=== PATIENT | female | born 1965 | race African-American/Black ===

== ENCOUNTER 2017-06-01 15:16 | Emergency (ER) | payer OTHER ==
[~2017-06-01] VITALS: Ht 149.9 cm; Wt 57.2 kg
[2017-06-01] MEDS ORDERED: NORVASC5 MG PO (15:44)
== END 2017-06-01 18:30 | disposition home or self-care (01) ==
LOC: ER 15:16
DX: B34.9 Viral infection, unspecified (principal)

== ENCOUNTER 2018-12-16 07:24 | Outpatient (CLI) | payer OTHER ==
[~2018-12-16 07:24] MED LIST: NORVASC5 MG PO
== END 2018-12-16 07:25 | disposition home or self-care (01) ==
LOC: TOM 07:24 → MAMO-SONO 08:15
DX: R31.29 Other microscopic hematuria (principal)

== ENCOUNTER 2018-12-16 08:05 | Outpatient (CLI) | payer OTHER | END 2018-12-16 10:23 | disposition home or self-care (01) | LOC: LAB 08:05 | DX: R31.29 Other microscopic hematuria (principal) ==

== ENCOUNTER 2019-04-17 10:52 | Emergency (ER) | payer OTHER ==
[~2019-04-17] VITALS: Ht 149.9 cm; Wt 58.1 kg
[2019-04-17] MEDS ORDERED: LOSARTAN POTASS50 MG PO (11:03)
[2019-04-17] MEDS ORDERED: ZITHROMAX500 MG PO (13:54)
[2019-04-17] MEDS ORDERED: MUCINEX D ER 11 EACH PO (13:54)
== END 2019-04-17 14:00 | disposition home or self-care (01) ==
LOC: ER 10:52
DX: J32.8 Other chronic sinusitis (principal)

== ENCOUNTER → 2019-12-04 | Emergency (ER) | payer OTHER ==
[~2019-12-04] VITALS: Ht 149.9 cm; Wt 52.2 kg
[~2019-12-04] MED LIST changes: +LOSARTAN POTASS50 MG PO; +MUCINEX D ER 11 EACH PO; +ZITHROMAX500 MG PO
== END | disposition home or self-care (01) ==
LOC: ER 07:16
DX: R53.81 Other malaise (principal); Z03.818 Encounter for observation for suspected exposure to other biological agents ruled out

== ENCOUNTER 2020-09-17 09:06 | Outpatient (CLI) | payer OTHER | END 2020-09-17 09:20 | disposition home or self-care (01) | LOC: SONOGRAMA 09:06 → MAMO-SONO 09:15 → SONOGRAMA 09:20 | PROVIDERS: ATTEND Obstetrics & Gynecology | DX: R10.2 Pelvic and perineal pain (principal); N91.4 Secondary oligomenorrhea ==

== ENCOUNTER 2020-09-24 13:17 | Outpatient (CLI) | payer OTHER | END 2020-09-24 13:21 | disposition home or self-care (01) | LOC: NUCLEAR 13:17 | DX: M81.0 Age-related osteoporosis without current pathological fracture (principal); Z13.820 Encounter for screening for osteoporosis ==

== ENCOUNTER → 2020-11-08 13:04 | Outpatient (CLI) | payer OTHER | END | disposition home or self-care (01) | LOC: LAB 13:04 | PROVIDERS: ATTEND Radiology Diagnostic Radiology | DX: E22.1 Hyperprolactinemia (principal) ==

== ENCOUNTER 2020-11-11 10:26 | Outpatient (CLI) | payer OTHER | END 2020-11-11 10:42 | disposition home or self-care (01) | LOC: MRI 10:26 | PROVIDERS: ATTEND Obstetrics & Gynecology | DX: E23.6 Other disorders of pituitary gland (principal); E22.1 Hyperprolactinemia | CPT/HCPCS: 70553 ==

== ENCOUNTER 2022-05-27 19:18 | Emergency (ER) | payer OTHER ==
[~2022-05-27] VITALS: Ht 149.9 cm; Wt 52.6 kg
[~2022-05-27 19:18] MED LIST changes: +ROSUVASTATIN CAL5 MG PO
== END 2022-05-27 22:39 | disposition home or self-care (01) ==
LOC: ER 19:18
DX: R11.10 Vomiting, unspecified (principal); I10 Essential (primary) hypertension

== ENCOUNTER 2022-06-05 09:33 | Outpatient (CLI) | payer OTHER | END 2022-06-05 09:40 | disposition home or self-care (01) | LOC: LAB 09:33 | PROVIDERS: ATTEND Radiology Diagnostic Radiology | DX: E22.1 Hyperprolactinemia (principal) ==

== ENCOUNTER 2022-06-05 12:01 | Outpatient (CLI) | payer OTHER | END 2022-06-05 12:06 | disposition home or self-care (01) | LOC: MRI 12:01 | DX: E22.1 Hyperprolactinemia (principal); E78.2 Mixed hyperlipidemia; I10 Essential (primary) hypertension; E16.2 Hypoglycemia, unspecified; Z83.3 Family history of diabetes mellitus | CPT/HCPCS: 70552 ==

== ENCOUNTER 2022-12-01 06:18 | Emergency (ER) | payer OTHER ==
[~2022-12-01] VITALS: Ht 149.9 cm; Wt 53.5 kg
[2022-12-01] MEDS ORDERED: COZAAR25 MG PO (06:31)
== END 2022-12-01 08:03 | disposition home or self-care (01) ==
LOC: ER 06:19
DX: G43.909 Migraine, unspecified, not intractable, without status migrainosus (principal); I10 Essential (primary) hypertension

== ENCOUNTER 2023-01-24 12:46 | Emergency (ER) | payer OTHER ==
[~2023-01-24] VITALS: Ht 157.5 cm; Wt 54.4 kg
[~2023-01-24 12:46] MED LIST changes: +COZAAR25 MG PO
[2023-01-24 13:20] LABS: URINE BILIRRUBIN NEGATIVE (NEGATIVE); URINE BLOOD LARGE; URINE GLUCOSE NEGATIVE (NEGATIVE); URINE LEUKOCYTE TRACE; URINE NITRATE NEGATIVE; URINE PROTEIN 30 (NEGATIVE); URINE UROBILINOGEN 0.2 E.U./dl
[2023-01-24 13:27] LABS: URINE APPEARANCE TURBID; URINE BACTERIA MANY; URINE COLOR YELLOW; URINE CRYSTALS NEGATIVE /HPF; URINE EPITHELIAL CELLS 0-4 /HPF; URINE RBC LOADED /HPF; URINE WBC 21-30 /hpf
[2023-01-24 13:28] LABS: URINE MUCUS SCANT
[2023-01-24 13:33] LABS: HEMATOCRIT 37.9 % (36.0-45.00); HEMOGLOBIN 12.6 g/dL (12.0-15.00); MEAN CELL VOLUME 91.4 fL (80.00-100.00); MEAN CORPUSCULAR HEMOGLOBIN 30.3 pg (27.00-32.0); MEAN CORPUSCULAR HGB CONC 33.2 g/dl (32.0-36.0); PLATELET COUNT 260 K/uL (150-450); RED BLOOD COUNT 4.14 M/uL (4.00-6.00)
[2023-01-24 14:33] LABS: CREATININE SERUM 0.85 mg/dL (0.55-1.02); GFR 69.44; POTASSIUM 4.21 mEq/L (3.5-5.1)
== END 2023-01-24 14:50 | disposition home or self-care (01) ==
LOC: ER 12:47
PROVIDERS: General Practice
DX: N30.90 Cystitis, unspecified without hematuria (principal); R30.0 Dysuria

== ENCOUNTER 2023-03-06 14:59 | Emergency (ER) | payer OTHER ==
[~2023-03-06] VITALS: Ht 149.9 cm; Wt 54.4 kg
[2023-03-06 20:25] LABS: MEAN CELL VOLUME 90.9 fL (80.00-100.00); MEAN CORPUSCULAR HEMOGLOBIN 31.1 pg (27.00-32.0); MEAN CORPUSCULAR HGB CONC 34.2 g/dl (32.0-36.0); PLATELET COUNT 291 K/uL (150-450); RED BLOOD COUNT 4.18 M/uL (4.00-6.00); RED CELL DISTRIBUTION WIDTH 13.3 % (11.5-14.5)
== END 2023-03-06 21:42 | disposition home or self-care (01) ==
LOC: ER 15:01
DX: U07.1 COVID-19 (principal); J06.9 Acute upper respiratory infection, unspecified; R05.9 Cough, unspecified

== ENCOUNTER 2023-03-31 16:24 | Outpatient (CLI) | payer OTHER ==
[2023-03-31 17:37] LABS: MYCOPLASMA PNEUMONIAE IGM NON REACTIVE (NO REACTIVE)
== END 2023-03-31 16:29 | disposition home or self-care (01) ==
LOC: LAB 16:24
DX: A49.3 Mycoplasma infection, unspecified site (principal); Z11.2 Encounter for screening for other bacterial diseases; Z11.59 Encounter for screening for other viral diseases; Z20.822 Contact with and (suspected) exposure to COVID-19

== ENCOUNTER 2023-04-14 11:29 | Outpatient (CLI) | payer OTHER ==
[2023-04-14 11:53] LABS: HEMATOCRIT 38.4 % (36.0-45.00); HEMOGLOBIN 12.9 g/dL (12.0-15.00); MEAN CELL VOLUME 91.1 fL (80.00-100.00); MEAN CORPUSCULAR HEMOGLOBIN 30.6 pg (27.00-32.0); MEAN CORPUSCULAR HGB CONC 33.5 g/dl (32.0-36.0); PLATELET COUNT 328 K/uL (150-450); RED BLOOD COUNT 4.21 M/uL (4.00-6.00); RED CELL DISTRIBUTION WIDTH 13.1 % (11.5-14.5)
== END 2023-04-14 11:30 | disposition home or self-care (01) ==
LOC: LAB 11:29
DX: R09.81 Nasal congestion (principal); R53.81 Other malaise

== ENCOUNTER 2023-04-14 11:57 | Outpatient (CLI) | payer OTHER | END 2023-04-14 12:04 | disposition home or self-care (01) | LOC: SONOGRAMA 11:57 | PROVIDERS: ATTEND Specialist | DX: Z13.29 Encounter for screening for other suspected endocrine disorder (principal) ==

== ENCOUNTER 2023-12-07 14:52 | Outpatient (CLI) | payer OTHER | END 2023-12-07 14:54 | disposition home or self-care (01) | LOC: SONOGRAMA 14:52 | PROVIDERS: ATTEND Surgery | DX: N60.11 Diffuse cystic mastopathy of right breast (principal); N60.12 Diffuse cystic mastopathy of left breast ==

== ENCOUNTER 2024-06-28 14:55 | Outpatient (CLI) | payer OTHER ==
[~2024-06-28 14:55] MED LIST changes: +NORVASC5 MG
[2024-06-28 15:30] LABS: BASO % 0.7 % (0.1-1.2); EOS # 0.18 (0.04-0.54); EOS % 2.5 % (0.7-7.0); HEMOGLOBIN 13.1 g/dL (11.2-15.7); LYMPH # 1.07 (1.18-3.74); LYMPH % 15.1 % (19.3-53.1); MEAN CORPUSCULAR HEMOGLOBIN 29.7 pg (25.6-32.2); MONO # 0.78 (0.24-0.82); NEUT % 70.6 % (34.0-71.1); PLATELET COUNT 275 K/uL (163-369); RED BLOOD COUNT 4.41 M/uL (3.93-5.22); RED CELL DISTRIBUTION WIDTH 12.2 % (11.6-14.4)
[2024-06-28 15:55] LABS: COVID-19 AG POSITIVE (NEGATIVE)
[2024-06-28 17:19] LABS: INFLUENZA A AG NEGATIVE (NEGATIVE)
== END 2024-06-28 14:56 | disposition home or self-care (01) ==
LOC: LAB 14:55
DX: J11.1 Influenza due to unidentified influenza virus with other respiratory manifestations (principal); Z20.822 Contact with and (suspected) exposure to COVID-19; A49.3 Mycoplasma infection, unspecified site; B34.9 Viral infection, unspecified; R09.81 Nasal congestion; R05.1 Acute cough